=== PATIENT | female | born 1955 | race Caucasian/White ===

== ENCOUNTER → 2017-02-16 | Outpatient (CLI) | payer BC ==
[~2017-02-16] MED LIST: AMIT25TA19 PO; ASPI81TA21 PO; CHOL100027 PO; CITA20TA9 PO; GABA-1218 PO; HYDR1TAB2 PO; INDO50CA97 PO; NRN600 PO; PRLSR20 PO; SIMV20TA2 PO; TRAZ-119 PO
--- NOTE | 2017-02-16 10:39 | DIAGNOSTIC IMAGING REPORT ---
CHEST 2 VIEWS ROUTINE HISTORY: RIGHT TRIGEMINAL NEURALGIA PT WENT TO LAB [facility] NEXT COMPARISON: Chest 11/09/2006. FINDINGS: The lungs are clear. Cardiac silhouette is normal in size. No pleural effusions. No pneumothorax. IMPRESSION: No acute process. Electronically signed by: Jerel Rajan M.D. 02/16/2017 10:38 AM Dictated Date/Time: 02/16/2017 10:37 AM
[2017-02-16 12:14] LABS: BASO % 0.6 %; BASO ABS # 0.03 K/uL (0-0.2); COMPLETE YES; EOS % 3.3 %; HEMATOCRIT 40.7 % (37-47); IG% 0.8 %; LYMPH % 23.6 %; MEAN CELL VOLUME 90.2 fL (80-100); MEAN CORPUSCULAR HEMOGLOBIN 29.5 pg (25-34); MEAN CORPUSCULAR HGB CONC 32.7 g/dl (32-36); MEAN PLATELET VOLUME 9.5 fL (7.4-10.4); MONO % 4.7 %; PLATELET COUNT 211 K/uL (130-400); RED BLOOD COUNT 4.51 M/uL (4.2-5.4); WHITE BLOOD COUNT 5.08 K/uL (4.8-10.8)
[2017-02-16 12:16] LABS: URINE APPEARANCE CLEAR (CLEAR); URINE BILIRUBIN NEG (NEG); URINE COLOR YELLOW; URINE NITRITE NEG (NEG); URINE SPECIFIC GRAVITY 1.012 (1.000-1.030); UROBILINOGEN NEG (NEG)
[2017-02-16 12:19] LABS: MANUAL MICROSCOPIC REQUIRED? NO; REVIEW REQ? NO
[2017-02-16 12:21] LABS: INR 0.9 (0.9-1.1); PROTHROMBIN TIME (PATIENT) 10.1 SECONDS (9.0-12.0)
[2017-02-16 12:27] LABS: ALT/SGPT 29 U/L (12-78); BLOOD UREA NITROGEN 12 mg/dl (7-18); BUN/CREATININE RATIO 18.7 (10-20); CALCIUM 8.7 mg/dl (8.5-10.1); CARBON DIOXIDE 28 mmol/L (21-32); CHLORIDE 106 mmol/L (98-107); CREATININE 0.64 mg/dl (0.60-1.20); GLUCOSE 81 mg/dl (70-99); POTASSIUM 4.2 mmol/L (3.5-5.1); SODIUM 140 mmol/L (136-145)
[2017-02-16 12:30] LABS: ALB/GLOB RATIO 1.2 (0.9-2); ALKALINE PHOSPHATASE 126 U/L (45-117); AST/SGOT 17 U/L (15-37)
== END | disposition home or self-care (01) ==
LOC: C.CPL 09:53
PROVIDERS: ATTEND Neurological Surgery
DX: G50.0 Trigeminal neuralgia (principal)